=== PATIENT | female | born 1960 | race Caucasian/White ===

== ENCOUNTER 2017-04-11 19:16 | Inpatient (IN) ==
[2017-04-11] MEDS ORDERED: tiZANidine 4 MG TABLET PO PRN (20:05)
[2017-04-11] MEDS ORDERED: Ondansetron ODT 4 MG TAB.RAPDIS PO PRN (20:05)
[2017-04-11] MEDS ORDERED: Nitroglycerin 0.4 MG TAB.SUBL SL PRN (20:05)
[2017-04-11] MEDS ORDERED: BYDUREON SQ SCH (20:15)
[2017-04-11] MEDS: Famotidine 20 MG TABLET PO SCH (21:46)
[2017-04-11] MEDS: Gabapentin 300 MG CAPSULE PO SCH (21:47)
[2017-04-11] MEDS: *HR* OxyCODONE/APAP 10/325 TABLET PO PRN (21:47)
[2017-04-12 05:21] LABS: Basophils % 0.2 %; Eosinophils % 3.3 %; Hematocrit 27.1 % (35.3-44.9); Hemoglobin 8.8 g/dL (11.5-15.4); Immature Granulocytes % 0.2 % (0-4); Lymphocytes % 12.4 %; Mean Corpuscular HGB Conc 32.5 g/dL (31.6-35.5); Mean Corpuscular Hemoglobin 28.7 pg (28.0-33.3); Mean Corpuscular Volume 88.3 fL (83.0-100.0); Mean Platelet Volume 9.1 fL (9.4-12.4); Monocytes % 7.4 %; Platelet Count 250 K/mcL (140-400); Red Blood Count 3.07 M/mcL (3.82-4.97); Red Cell Distribution Width 15.4 % (11.5-14.5); Segmented Neutrophils % 76.5 %
[2017-04-12 05:22] LABS: Eosinophils # 0.1 K/mcL (0.0-0.6); Lymphocytes # 0.5 K/mcL (0.6-4.6); Monocytes # 0.3 K/mcL (0.0-1.3); Neutrophils # 3.2 K/mcL (1.6-8.9)
[2017-04-12 05:30] LABS: Activated Partial Thrombo Time 28.7 Seconds (26.0-36.0)
[2017-04-12] MEDS: *HR* OxyCODONE/APAP 10/325 TABLET PO PRN ×3 (05:32→20:27)
[2017-04-12] MEDS: Ipratropium/Albuterol Neb 3 ML IH PRN (05:32)
[2017-04-12 05:36] LABS: BUN/Creatinine Ratio 16 (6-26); Blood Urea Nitrogen 11 mg/dL (7-20); Calcium 8.2 mg/dL (8.6-10.8); Carbon Dioxide 26 mEq/L (19-29); Chloride 102 mEq/L (98-109); Glucose 185 mg/dL (70-99); Osmolality,Calculated 290 (280-300); Sodium 138 mEq/L (136-145); eGFR For African Americans > 60 (> 60); eGFR For Non-African Americans > 60 (> 60)
[2017-04-12] MEDS: *HR* Enoxaparin 40 MG/0.4 ML SYRINGE SQ SCH (08:25)
[2017-04-12] MEDS: Aspirin Enteric Coated 81 MG Tablet PO SCH (08:26)
[2017-04-12] MEDS: Gabapentin 300 MG CAPSULE PO SCH ×3 (08:26→20:28)
[2017-04-12] MEDS: *HR* Metformin 500 MG TABLET PO SCH ×2 (08:26→17:17)
--- NOTE | 2017-04-12 11:16 | Internal Med History&Physical ---
Date of Encounter: 04/12/17 Time of Encounter: 10:45 Assessment and Plan (1) Status post open reduction with internal fixation of fracture Current visit: Yes Status: Acute - PT/OT. - DVT prophylaxis. - Ortho f/u on 04/16. (2) Normocytic anemia Current visit: Yes Status: Acute Stable, continue to monitor clinically. No indication for transfusion as of now. (3) CAD (coronary artery disease) Current visit: No Status: Chronic Continue home meds (aspirin, Plavix, metoprolol, and simvastatin). Qualifiers: Coronary Disease-Associated Artery/Lesion type: [place] artery [place] vs. transplanted heart: [place] heart Associated angina: angina presence unspecified Qualified Code(s): I25.10 - Atherosclerotic heart disease of [place] coronary artery without angina pectoris (4) Hypertension Current visit: No Status: Chronic Continue home meds (metoprolol). Qualifiers: Hypertension type: essential hypertension Qualified Code(s): I10 - Essential (primary) hypertension (5) Diabetes Current visit: No Status: Chronic - HbA1c = 7.2 on 11/13/2016, will repeat. - Continue home metformin. - SSI + hypoglycemia protocol. Qualifiers: Diabetes mellitus type: type 2 Diabetes mellitus complication status: with neurologic complications Diabetes mellitus complication detail: with polyneuropathy Diabetes mellitus exterminator termite insulin use: without exterminator termite use Qualified Code(s): E11.42 - Type 2 diabetes mellitus with diabetic polyneuropathy (6) DVT prophylaxis Current visit: Yes Status: Acute Continue subQ Lovenox. (7) Anxiety Current visit: No Status: Acute Continue home zolpidem. (8) Depression Current visit: No Status: Acute Continue home citalopram. (9) Cough Current visit: Yes Status: Acute - CXR on 04/09 revealed mild bilateral interstitial opacities; will repeat a CXR. - Incentive spirometry. - Supportive care for now. Internal Medicine - H&P: HPI Chief complaint: Left femur fracture s/p ORIF Admitted From: Hospital to Hospital Transfer Plans for Post Hospital Care: Transfer Inp Rehab Fac History of present illness: Ms. Mcgregor is a 56 year old female w/a PMH significant HTN, DM2, CAD s/p stents , anxiety, and depression who was recently admitted to [facility] for a left femur fracture s/p ORIF now transferred to our facility for rehabilitation. Briefly, per the patient's discharge summary, other than the surgery itself, 2 units of pRBC, and self-limited postoperative encephalopathy, the patient's hospital course was overall uncomplicated. At the time of this encounter, the patient is resting comfortably in bed. Other than a nagging cough that started while the patient was hospitalized, the patient reports no fever, chills, CP, SOB, n/v, changes in BM pattern, dysuria, seizure, skin rash , bruising, or bleeding symptoms. Past Med Surg Social Fam HX - Past Medical History Medical history: arthritis, diabetes, GERD, myocardial infarction Psychiatric history: anxiety, depression - Past Surgical History Surgical History: cholecystectomy, knee replacement, angioplasty/stent, other - Social History Smoking Status: Never smoker Smokeless Tobacco Status: No Alcohol use: none Drug use: none - Family History Mother Living Status: Hx Family Cardiac Disorders: Yes Hx Family Respiratory Disorders: Yes Hx Family Cancer: Yes Father Living Status: Hx Family Cardiac Disorders: Yes Hx Family Respiratory Disorders: Yes Internal Medicine - H&P: Meds Citalopram [CeleXA] 20 mg PO QPM 01/10/15 [History] Ondansetron HCl [Zofran] 4 mg PO Q4-6H PRN 01/10/15 [History] Clopidogrel [Plavix] 75 mg PO QAM 02/24/15 [History] Tizanidine [Zanaflex] 4 mg PO Q8H PRN 02/24/15 [History] metFORMIN [Glucophage] 1,000 mg PO BIDWM 04/05/17 [History] Albuterol Sulfate [Proair Hfa] 2 puff IH Q4H PRN 04/06/17 [History] Aspirin Enteric Coated [Aspirin EC] 81 mg PO DAILY 04/06/17 [History] Exenatide Microspheres [Bydureon Pen] 2 mg SQ QWEEK 04/06/17 [History] Nitroglycerin [Nitrostat] 0.4 mg SL Q5M PRN 04/06/17 [History] Ranitidine HCl [Zantac] 150 mg PO HS 04/06/17 [History] Simvastatin [Zocor] 40 mg PO HS 04/06/17 [History] Docusate [Colace] 100 mg PO BID PRN #14 capsule 04/11/17 [Rx] Enoxaparin [Lovenox] 40 mg SQ DAILY 10 Days #10 syr 04/11/17 [Rx] Gabapentin [Neurontin] 600 mg PO TID #14 tablet 04/11/17 [Rx] Ipratropium/Albuterol Neb [Duoneb] 3 ml IH [id number] PRN #30 inhsol 04/11/17 [Rx] Metoprolol [Lopressor] 25 mg PO BID #60 tablet 04/11/17 [Rx] OxyCODONE/APAP 10/325 [Percocet 10/325 MG] 1 each PO Q6HR PRN #10 tablet [Rx] Zolpidem [Ambien] 10 mg PO HS #7 tablet 04/11/17 [Rx] 3 Allergy/AdvReac Type Severity Reaction Status Date / Time No Known Allergies Allergy Verified 04/06/17 01:33 EDT All Systems PM: A 10-system review of systems was performed and is negative for pertinent findings except as documented above in the HPI. Review of systems: 10 systems reviewed and (-) other than mentioned per HPI. - Constitutional Vitals: Temp Pulse Resp BP Pulse Ox 98.3 F 82 18 133/85 90 04/12/17 07:29 04/12/17 09:16 04/12/17 09:16 04/12/17 09:16 04/12/17 09:16 Exam: Gen: A&Ox3, NAD. HEENT: NCAT. Neck: No palpable lymphadenopathy or thyromegaly. CV: RRR, S1S2. No murmur. Pulm: Somewhat limited due to positional difficulty, but overall CTAB. Abd: (+)BS. NDNT. Neuro: Weakness, otherwise non-focal. Skin: No rash. Ext: LLE in hinged immobilizer. No pitting edema. Internal Med - H&P Results - Labs CBC & Chem 7: 04/12/17 05:20 04/12/17 05:20 Labs: Short CBC 04/12/17 Range/Units 05:20 WBC 4.2 L (4.3-11.1) K/mcL Hgb 8.8 L (11.5-15.4) g/dL Hct 27.1 L (35.3-44.9) % Plt Count 250 (140-400) K/mcL Neutrophils # 3.2 (1.6-8.9) K/mcL [facility] 04/12/17 05:20 Sodium 138 Potassium 4.0 Chloride 102 Carbon Dioxide 26 BUN 11 Creatinine 0.69 Glucose 185 H Calcium 8.2 L
[2017-04-12] MEDS ORDERED: D5% in Water 1,000 ML IVC PRN (12:02)
[2017-04-12] MEDS ORDERED: Dextrose Gel 15 GM PO PRN ×2 (12:02)
[2017-04-12] MEDS ORDERED: *HR* Dextrose 50 % in Water (Syg) 50 ML SYRINGE IVP PRN (12:02)
[2017-04-12] MEDS: Insulin LISPRO 300 UNITS/3 ML VIAL SQ SCH ×3 (13:28→20:28)
[2017-04-12] MEDS: Famotidine 20 MG TABLET PO SCH (20:28)
[2017-04-12] MEDS: Benzonatate 100 MG CAPSULE PO PRN (20:28)
[2017-04-13] MEDS: Benzonatate 100 MG CAPSULE PO PRN ×3 (05:55→23:28)
[2017-04-13] MEDS: Ipratropium/Albuterol Neb 3 ML IH PRN (06:02)
[2017-04-13] MEDS: Insulin LISPRO 300 UNITS/3 ML VIAL SQ SCH ×4 (08:32→20:41)
[2017-04-13] MEDS: *HR* Enoxaparin 40 MG/0.4 ML SYRINGE SQ SCH (08:33)
[2017-04-13] MEDS: *HR* Metformin 500 MG TABLET PO SCH ×2 (08:33→17:18)
[2017-04-13] MEDS: Aspirin Enteric Coated 81 MG Tablet PO SCH (08:33)
[2017-04-13] MEDS: Gabapentin 300 MG CAPSULE PO SCH ×3 (08:33→20:40)
[2017-04-13] MEDS: *HR* OxyCODONE/APAP 10/325 TABLET PO PRN ×3 (08:47→20:09)
--- NOTE | 2017-04-13 12:08 | Internal Med Progress Note ---
Date of Encounter: 04/13/17 Time of Encounter: 11:20 - Assessment and plan (1) Status post open reduction with internal fixation of fracture Current Visit: Yes Status: Acute Assessment and plan: - PT/OT. - DVT prophylaxis. - Ortho f/u on 04/16. (2) Normocytic anemia Current Visit: Yes Status: Acute Assessment and plan: Stable, continue to monitor clinically. No indication for transfusion as of now. CBC tomorrow morning. (3) CAD (coronary artery disease) Current Visit: No Status: Chronic Assessment and plan: Continue home meds (aspirin, Plavix, metoprolol, and simvastatin). Qualifiers: Coronary Disease-Associated Artery/Lesion type: [place] artery [place] vs. transplanted heart: [place] heart Associated angina: angina presence unspecified Qualified Code(s): I25.10 - Atherosclerotic heart disease of [place] coronary artery without angina pectoris (4) Hypertension Current Visit: No Status: Chronic Assessment and plan: Continue home meds (metoprolol). Qualifiers: Hypertension type: essential hypertension Qualified Code(s): I10 - Essential (primary) hypertension (5) Diabetes Current Visit: No Status: Chronic Assessment and plan: - HbA1c = 7.2 on 11/13/2016, will repeat. - Continue home metformin. - SSI + hypoglycemia protocol. Qualifiers: Diabetes mellitus type: type 2 Diabetes mellitus complication status: with neurologic complications Diabetes mellitus complication detail: with polyneuropathy Diabetes mellitus monument carver insulin use: without snf use Qualified Code(s): E11.42 - Type 2 diabetes mellitus with diabetic polyneuropathy (6) DVT prophylaxis Current Visit: Yes Status: Acute Assessment and plan: Continue subQ Lovenox. (7) Anxiety Current Visit: No Status: Chronic Assessment and plan: Continue home zolpidem. (8) Depression Current Visit: No Status: Chronic Assessment and plan: Continue home citalopram. Qualifiers: Qualified Code(s): F32.89 - Other specified depressive episodes (9) Cough Current Visit: Yes Status: Acute Assessment and plan: - CXR from yesterday stable compared to 04/09. - Continue incentive spirometry. - Z-JOS (will monitor electrolytes closely). - Supportive care. - Time Spent With Patient less than 15 minutes - Subjective Interval history: - Feeling "okay." - Still having a cough; glad to know CXR from yesterday was stable from before. - Constitutional Vitals: Temp Pulse Resp BP Pulse Ox 97.2 F L 73 16 163/86 90 04/13/17 08:00 04/13/17 08:00 04/13/17 08:00 04/13/17 08:00 04/13/17 08:00 Exam: Gen: A&Ox3, NAD. HEENT: NCAT. Neck: No palpable lymphadenopathy or thyromegaly. CV: RRR, S1S2. No murmur. Pulm: Air exchange somewhat tight, but overall CTAB. Abd: (+)BS. NDNT. Neuro: LLE weakness noted. Skin: No rash. Ext: LLE in hinged immobilizer. No pitting edema. Internal Medicine: Result - Labs CBC & Chem 7: 04/12/17 05:20 04/12/17 05:20 - ABG Interpretation ABG results: PT/INR, D-dimer PT 11.0 Seconds (9.4-12.1) 04/12/17 05:20 - Impressions Impressions Chest X-Ray 04/12/17 11:59 IMPRESSION: No significant interval change of perihilar interstitial opacities, right greater than left, since 04/09/2017. No new focal consolidation. D/ / Mamie Trinidad MD / Mamie Trinidad MD Interpreting Provider: Mamie Trinidad MD - Diagnostic Studies Chest x-ray Additional comments: "No significant interval change of perihilar interstitial opacities, right greater than left, since 04/09/2017. No new focal consolidation." Consult Discharge Plan - Plan Referrals: Sergio Barrientos DO [Primary Care Provider] - (Follow up Sunday, April 16, 2017 at 8:00 Niurka Quinones [facility] [address] [facility] [address] [phone] Follow up Sunday, April 23, 2017 at 8:30 Niurka Quinones [facility] [address] [phone] Follow up May at 8:00 Kaylee Joiner [facility] [address] [place], [place] [phone] Follow up Saturday May 20, 2017 at 8:30 [facility] [place], [place] [phone] Follow up June 12, 2017 at 11:15 Sergio Barrientos [facility] [address] [place], [place] [phone] )
[2017-04-13] MEDS ORDERED: Azithromycin 250 MG TABLET PO ONE (12:09)
[2017-04-13] MEDS: Famotidine 20 MG TABLET PO SCH (20:40)
[2017-04-14] MEDS: Ipratropium/Albuterol Neb 3 ML IH PRN ×2 (05:19→13:50)
[2017-04-14] MEDS: *HR* OxyCODONE/APAP 10/325 TABLET PO PRN ×3 (05:19→20:28)
[2017-04-14 05:43] LABS: Basophils % 0.1 %; Eosinophils # 0.2 K/mcL (0.0-0.6); Hematocrit 27.9 % (35.3-44.9); Immature Granulocytes % 1.5 % (0-4); Lymphocytes # 1.1 K/mcL (0.6-4.6); Lymphocytes % 14.6 %; Mean Corpuscular HGB Conc 32.3 g/dL (31.6-35.5); Mean Corpuscular Hemoglobin 28.6 pg (28.0-33.3); Mean Corpuscular Volume 88.6 fL (83.0-100.0); Mean Platelet Volume 9.4 fL (9.4-12.4); Monocytes # 0.5 K/mcL (0.0-1.3); Monocytes % 6.6 %; Neutrophils # 5.6 K/mcL (1.6-8.9); Platelet Count 333 K/mcL (140-400); Red Blood Count 3.15 M/mcL (3.82-4.97); Red Cell Distribution Width 15.5 % (11.5-14.5); Segmented Neutrophils % 74.2 %
[2017-04-14 06:02] LABS: BUN/Creatinine Ratio 12 (6-26); Blood Urea Nitrogen 8 mg/dL (7-20); Calcium 8.5 mg/dL (8.6-10.8); Carbon Dioxide 26 mEq/L (19-29); Chloride 101 mEq/L (98-109); Glucose 165 mg/dL (70-99); Osmolality,Calculated 288 (280-300); Potassium 4.1 mEq/L (3.5-4.5); Sodium 138 mEq/L (136-145); eGFR For African Americans > 60 (> 60); eGFR For Non-African Americans > 60 (> 60)
[2017-04-14] MEDS: Insulin LISPRO 300 UNITS/3 ML VIAL SQ SCH ×4 (07:58→20:31)
[2017-04-14] MEDS: Gabapentin 300 MG CAPSULE PO SCH ×3 (08:43→20:27)
[2017-04-14] MEDS: Azithromycin 250 MG TABLET PO SCH (08:44)
[2017-04-14] MEDS: Aspirin Enteric Coated 81 MG Tablet PO SCH (08:44)
[2017-04-14] MEDS: *HR* Enoxaparin 40 MG/0.4 ML SYRINGE SQ SCH (08:45)
[2017-04-14] MEDS: *HR* Metformin 500 MG TABLET PO SCH ×2 (09:37→17:16)
[2017-04-14 14:16] LABS: Hemoglobin A1C 6.9 %
--- NOTE | 2017-04-14 14:39 | Internal Med Progress Note ---
Date of Encounter: 04/17/17 Time of Encounter: 14:37 - Assessment and plan (1) Accelerated hypertension Current Visit: No Status: Resolved Assessment and plan: Lab pressures well-controlled (2) Chronic pain Current Visit: No Status: Chronic Assessment and plan: I guess she has lot of chronic pain complaint Qualifiers: Chronic pain type: other chronic postprocedural pain Qualified Code(s): G89.28 - Other chronic postprocedural pain (3) NSTEMI (non-ST elevated myocardial infarction) Current Visit: No Status: Ruled-out Assessment and plan: Patient has a history of myocardial disease. And she had a stone stemming (4) Troponin level elevated Current Visit: No Status: Acute Assessment and plan: Vertebral levels were somewhat elevated (5) CAD (coronary artery disease) Current Visit: No Status: Chronic Assessment and plan: By history she has had coronary artery disease. Qualifiers: Coronary Disease-Associated Artery/Lesion type: [place] artery [place] vs. transplanted heart: [place] heart Associated angina: angina presence unspecified Qualified Code(s): I25.10 - Atherosclerotic heart disease of [place] coronary artery without angina pectoris (6) Femur fracture Current Visit: No Status: Acute Qualifiers: Encounter type: initial encounter Femur location: distal Fracture type: closed Fracture morphology: unspecified fracture morphology Laterality: left Qualified Code(s): S72.402A - Unspecified fracture of lower end of left femur, initial encounter for closed fracture - Time Spent With Patient less than 15 minutes - Subjective Interval history: Patient is timid complains a lot of pain. He is contact guard for transfer to bedside commode. She therapy tech be discharged early next week on Friday. She is doing tolerably well just a slow start - Constitutional Vitals: Temp Pulse Resp BP Pulse Ox 97.8 F 74 18 145/84 90 04/14/17 07:16 04/14/17 07:16 04/14/17 07:16 04/14/17 07:16 04/14/17 07:16 - Head Head exam: Present: atraumatic, normal inspection, normocephalic - Neck Neck exam general surgery: Present: supple, trachea midline. Absent: lymphadenopathy - Respiratory Respiratory exam: Present: CTAB. Absent: accessory muscle use, rales, rhonchi, wheezes - Cardiovascular Cardiovascular exam: Present: RRR, +S1, +S2. Absent: diastolic murmur, gallop, rubs, systolic murmur - GI/Abdominal GI/Abdominal exam: Present: normal bowel sounds, soft, no peritoneal signs. Absent: distended, tenderness Internal Medicine: Result - Labs CBC & Chem 7: 04/14/17 05:10 04/14/17 05:10 Labs: Short CBC 04/14/17 Range/Units 05:10 WBC 7.6 D (4.3-11.1) K/mcL Hgb 9.0 L (11.5-15.4) g/dL Hct 27.9 L (35.3-44.9) % Plt Count 333 (140-400) K/mcL Neutrophils # 5.6 (1.6-8.9) K/mcL [facility] 04/14/17 05:10 Sodium 138 Potassium 4.1 Chloride 101 Carbon Dioxide 26 BUN 8 Creatinine 0.67 Glucose 165 H Calcium 8.5 L Lab is stable - ABG Interpretation ABG results: PT/INR, D-dimer PT 11.0 Seconds (9.4-12.1) 04/12/17 05:20 Consult Discharge Plan - Plan Referrals: Sergio Barrientos DO [Primary Care Provider] - (Follow up Sunday, April 16, 2017 at 8:00 Niurka [facility] [place] [address] [place], [place] [phone] Follow up Sunday, April 23, 2017 at 8:30 Niurka Quinones [facility] [place] [address] [place], [place] [phone] Follow up May at 8:00 Kaylee Joiner [facility] [place] [address] [place], [place] [phone] Follow up Saturday May 20, 2017 at 8:30 Freeman [facility] [place], [place] [phone] Follow up June 12, 2017 at 11:15 Sergio Barrientos [address] [phone] )
[2017-04-14] MEDS: predniSONE 20 MG TABLET PO SCH (17:16)
[2017-04-14] MEDS: Famotidine 20 MG TABLET PO SCH (20:27)
[2017-04-14] MEDS: Benzonatate 100 MG CAPSULE PO PRN (20:28)
[2017-04-15] MEDS: *HR* OxyCODONE/APAP 10/325 TABLET PO PRN ×5 (00:35→21:32)
[2017-04-15] MEDS: Insulin LISPRO 300 UNITS/3 ML VIAL SQ SCH ×4 (07:51→21:35)
[2017-04-15] MEDS: *HR* Enoxaparin 40 MG/0.4 ML SYRINGE SQ SCH (07:55)
[2017-04-15] MEDS: Gabapentin 300 MG CAPSULE PO SCH ×3 (08:32→21:32)
[2017-04-15] MEDS: predniSONE 20 MG TABLET PO SCH ×2 (08:32→17:20)
[2017-04-15] MEDS: *HR* Metformin 500 MG TABLET PO SCH ×2 (08:32→17:20)
[2017-04-15] MEDS: Aspirin Enteric Coated 81 MG Tablet PO SCH (08:33)
[2017-04-15] MEDS: Azithromycin 250 MG TABLET PO SCH (08:35)
--- NOTE | 2017-04-15 15:30 | Internal Med Progress Note ---
Date of Encounter: 04/17/17 Time of Encounter: 15:28 - Assessment and plan (1) Accelerated hypertension Current Visit: No Status: Resolved Assessment and plan: Blood pressure stable (2) Chronic pain Current Visit: No Status: Chronic Assessment and plan: This is long-term and is being addressed Qualifiers: Chronic pain type: other chronic postprocedural pain Qualified Code(s): G89.28 - Other chronic postprocedural pain (3) NSTEMI (non-ST elevated myocardial infarction) Current Visit: No Status: Ruled-out Assessment and plan: Seems to be stable now complaints of chest pain or other difficulties no arrhythmias or dysrhythmias report (4) Troponin level elevated Current Visit: No Status: Acute Assessment and plan: Troponin level I will check it but it is relatively normal male (5) CAD (coronary artery disease) Current Visit: No Status: Chronic Qualifiers: Coronary Disease-Associated Artery/Lesion type: [place] artery [place] vs. transplanted heart: [place] heart Associated angina: angina presence unspecified Qualified Code(s): I25.10 - Atherosclerotic heart disease of [place] coronary artery without angina pectoris (6) Femur fracture Current Visit: No Status: Acute Qualifiers: Encounter type: initial encounter Femur location: distal Fracture type: closed Fracture morphology: unspecified fracture morphology Laterality: left Qualified Code(s): S72.402A - Unspecified fracture of lower end of left femur, initial encounter for closed fracture - Subjective Interval history: Patient is timid complains a lot of pain. He is contact guard for transfer to bedside commode. She scheduled .look to D incision today disturbing clean and dry. 90 minute drop of blood on the dressing be discharged early next week on Friday. She is doing tolerably well just a slow start - Constitutional Vitals: Temp Pulse Resp BP Pulse Ox 97.5 F L 69 16 137/80 92 04/15/17 08:29 04/15/17 08:29 04/14/17 19:00 04/15/17 08:29 04/15/17 08:29 - Head Head exam: Present: atraumatic, normal inspection, normocephalic - Neck Neck exam general surgery: Present: supple, trachea midline. Absent: lymphadenopathy - Respiratory Respiratory exam: Present: CTAB. Absent: accessory muscle use, rales, rhonchi, wheezes - Cardiovascular Cardiovascular exam: Present: RRR, +S1, +S2. Absent: diastolic murmur, gallop, rubs, systolic murmur - GI/Abdominal GI/Abdominal exam: Present: normal bowel sounds, soft, no peritoneal signs. Absent: distended, tenderness Internal Medicine: Result - Labs CBC & Chem 7: 04/14/17 05:10 04/14/17 05:10 Labs: Lab is stable - ABG Interpretation ABG results: PT/INR, D-dimer PT 11.0 Seconds (9.4-12.1) 04/12/17 05:20 Consult Discharge Plan - Plan Referrals: Sergio Barrientos DO [Primary Care Provider] - (Follow up Sunday, April 16, 2017 at 8:00 Niurka [facility]ones[facility] [address] [place], [place] [phone] Follow up Sunday, April 23, 2017 at 8:30 Niurka Quinones [facility] [place] [address] [place], [place] [phone] Follow up May at 8:00 Kaylee Joiner [facility] [place] [address] [place], [place] [phone] Follow up Saturday May 20, 2017 at 8:30 Freeman [facility] [place], [place] [phone] Follow up June 12, 2017 at 11:15 Sergio Barrientos [address] [phone] )
[2017-04-15] MEDS: Benzonatate 100 MG CAPSULE PO PRN (21:32)
[2017-04-15] MEDS: Famotidine 20 MG TABLET PO SCH (21:32)
[2017-04-16] MEDS: *HR* OxyCODONE/APAP 10/325 TABLET PO PRN ×3 (07:05→20:20)
[2017-04-16] MEDS: Gabapentin 300 MG CAPSULE PO SCH ×3 (10:47→20:20)
[2017-04-16] MEDS: *HR* Enoxaparin 40 MG/0.4 ML SYRINGE SQ SCH (10:47)
[2017-04-16] MEDS: *HR* Metformin 500 MG TABLET PO SCH ×2 (10:47→17:55)
[2017-04-16] MEDS: predniSONE 20 MG TABLET PO SCH ×2 (10:48→17:54)
[2017-04-16] MEDS: Aspirin Enteric Coated 81 MG Tablet PO SCH (10:48)
[2017-04-16] MEDS: Azithromycin 250 MG TABLET PO SCH (10:48)
[2017-04-16] MEDS: Ipratropium/Albuterol Neb 3 ML IH PRN (12:36)
[2017-04-16] MEDS: Insulin LISPRO 300 UNITS/3 ML VIAL SQ SCH ×3 (12:58→23:28)
--- NOTE | 2017-04-16 13:59 | Physical Med Progress Note ---
Date of Encounter: 04/16/17 Time of Encounter: 13:56 Physical Medicine-PN: Subj Interval history: PMR PCC Note Patient requires cues to use a walker. Patient complains of fatigue with walker and has refused to walk. Patient is SBA for transfers. Requires cues for weight bearing restrictions. Patient would like to go home. Patient will go home at a wheelchair level. Plan for discharge to home on 04/18/17. - Constitutional Vitals: Vital Signs Temp Pulse Resp BP Pulse Ox 04/16/17 09:00 98.6 F 75 14 171/85 92 04/15/17 19:11 98.4 F 78 17 159/73 92 Intake and Output 04/15/17 04/16/17 04/16/17 23:59 07:59 15:59 Intake Total 240 / 240 240 / 240 Balance 240 / 240 240 / 240 Intake: Oral 240 / 240 240 / 240 Other: Meal Dinner Breakfast Percent of Meal Consumed 100% 100% # Voids 1 1 1 # Urine Diapers 1 Blood Glucose* 235 139 Physical Medicine-PN: Obj Data - Labs CBC & Chem 7: 04/14/17 05:10 04/14/17 05:10 Labs: Laboratory Results - last 24 hr 04/15/17 04/15/17 04/16/17 15:55 19:59 07:20 POC Glucose 237 H 235 H 180 H - ABG Interpretation ABG results: PT/INR, D-dimer PT 11.0 Seconds (9.4-12.1) 04/12/17 05:20 Consult Discharge Plan - Plan Referrals: Sergio Barrientos DO [Primary Care Provider] - (Follow up Sunday, April 16, 2017 at 8:00 Niurka Quinones [facility] [address] [place] [phone] Follow up Sunday, April 23, 2017 at 8:30 Niurka Quinones [facility] [place] [address] [facility] [place], [place] [phone] Follow up May at 8:00 Kaylee Joiner [facility] [address] [facility] [place], [place] [phone] Follow up Saturday May 20, 2017 at 8:30 Freeman [facility] [place] [phone] Follow up June 12, 2017 at 11:15 Sergio Barrientos [facility] [address] [place], [place] [phone] )
[2017-04-16] MEDS: Famotidine 20 MG TABLET PO SCH (20:20)
[2017-04-17] MEDS: *HR* OxyCODONE/APAP 10/325 TABLET PO PRN ×3 (04:06→22:15)
[2017-04-17] MEDS: Benzonatate 100 MG CAPSULE PO PRN ×3 (05:15→14:48)
[2017-04-17] MEDS: *HR* Enoxaparin 40 MG/0.4 ML SYRINGE SQ SCH (07:51)
[2017-04-17] MEDS: Azithromycin 250 MG TABLET PO SCH (07:52)
[2017-04-17] MEDS: Aspirin Enteric Coated 81 MG Tablet PO SCH (07:52)
[2017-04-17] MEDS: Gabapentin 300 MG CAPSULE PO SCH ×3 (07:52→22:15)
[2017-04-17] MEDS: *HR* Metformin 500 MG TABLET PO SCH ×2 (07:58→16:38)
[2017-04-17] MEDS: predniSONE 20 MG TABLET PO SCH ×2 (07:59→16:38)
[2017-04-17] MEDS: Insulin LISPRO 300 UNITS/3 ML VIAL SQ SCH ×4 (08:02→22:19)
--- NOTE | 2017-04-17 11:19 | Internal Med Progress Note ---
Date of Encounter: 04/17/17 Time of Encounter: 11:17 - Assessment and plan (1) Accelerated hypertension Current Visit: No Status: Resolved Assessment and plan: Blood pressure is controlled (2) Chronic pain Current Visit: No Status: Chronic Assessment and plan: Patient has lots of complaints. She has a lot of medical problems. Qualifiers: Chronic pain type: other chronic postprocedural pain Qualified Code(s): G89.28 - Other chronic postprocedural pain (3) NSTEMI (non-ST elevated myocardial infarction) Current Visit: No Status: Ruled-out Assessment and plan: This by history. Currently no chest pain or problem (4) Troponin level elevated Current Visit: No Status: Acute (5) CAD (coronary artery disease) Current Visit: No Status: Chronic Assessment and plan: Known history of CAD Qualifiers: Coronary Disease-Associated Artery/Lesion type: [place] artery [place] vs. transplanted heart: [place] heart Associated angina: angina presence unspecified Qualified Code(s): I25.10 - Atherosclerotic heart disease of [place] coronary artery without angina pectoris (6) Femur fracture Current Visit: No Status: Acute Assessment and plan: Patient have [place] for fracture and underwent ORIF. She is here for rehabilitation and doing well she does get very fatigued Qualifiers: Encounter type: initial encounter Femur location: distal Fracture type: closed Fracture morphology: unspecified fracture morphology Laterality: left Qualified Code(s): S72.402A - Unspecified fracture of lower end of left femur, initial encounter for closed fracture - Time Spent With Patient less than 15 minutes - Subjective Interval history: Patient felt poorly yesterday afternoon I think she just gets tired and fatigued very quickly. She is doing better today. I am going to side prescription for a wheelchair with elevating leg rest. Her diagnosis is fractured femur and she needs it for ADLs. She is unsafe because she is nonweight bearing with a walker. Patient is alert and oriented and is capable of using a wheelchair safely. - Constitutional Vitals: Temp Pulse Resp BP Pulse Ox 98.6 F 56 18 186/71 95 04/17/17 07:00 04/17/17 07:00 04/17/17 07:00 04/17/17 07:00 04/17/17 07:00 - Head Head exam: Present: atraumatic, normal inspection, normocephalic - Neck Neck exam general surgery: Present: supple, trachea midline. Absent: lymphadenopathy - Respiratory Respiratory exam: Present: CTAB. Absent: accessory muscle use, rales, rhonchi, wheezes - Cardiovascular Cardiovascular exam: Present: RRR, +S1, +S2. Absent: diastolic murmur, gallop, rubs, systolic murmur - GI/Abdominal GI/Abdominal exam: Present: normal bowel sounds, soft, no peritoneal signs. Absent: distended, tenderness Internal Medicine: Result - Labs CBC & Chem 7: 04/14/17 05:10 04/14/17 05:10 Labs: Lab is stable - ABG Interpretation ABG results: PT/INR, D-dimer PT 11.0 Seconds (9.4-12.1) 04/12/17 05:20 Consult Discharge Plan - Plan Referrals: Sergio Barrientos DO [Primary Care Provider] - (Follow up Sunday, April 16, 2017 at 8:00 Niurka Quinones [facility] [place] [address] [place], [place] [phone] Follow up Sunday, April 23, 2017 at 8:30 Niurka Quinones [facility] [place] [address] [place], [place] [phone] Follow up May at 8:00 Kaylee Joiner [facility] [place] [address] [place], [place] [phone] Follow up Saturday May 20, 2017 at 8:30 Freeman Dobbins [facility] [place] [phone] Follow up June 12, 2017 at 11:15 Sergio Barrientos [address] [phone] )
[2017-04-17] MEDS: Famotidine 20 MG TABLET PO SCH (22:15)
[2017-04-18] MEDS: Benzonatate 100 MG CAPSULE PO PRN (05:24)
[2017-04-18] MEDS: Insulin LISPRO 300 UNITS/3 ML VIAL SQ SCH (08:45)
[2017-04-18] MEDS: *HR* Enoxaparin 40 MG/0.4 ML SYRINGE SQ SCH (08:53)
[2017-04-18] MEDS: Gabapentin 300 MG CAPSULE PO SCH (08:54)
[2017-04-18] MEDS: *HR* Metformin 500 MG TABLET PO SCH (08:54)
[2017-04-18] MEDS: Aspirin Enteric Coated 81 MG Tablet PO SCH (08:54)
[2017-04-18] MEDS: *HR* OxyCODONE/APAP 10/325 TABLET PO PRN (08:54)
[2017-04-18] MEDS: predniSONE 20 MG TABLET PO SCH (08:54)
[2017-04-18 10:36] VITALS: BP 126/72
--- NOTE | 2017-04-18 11:09 | Discharge Summary ---
Date of Encounter: 04/18/17 Time of Encounter: 11:07 - Discharge Diagnosis (1) Accelerated hypertension Priority: Secondary Status: Resolved (2) Chronic pain Priority: Secondary Status: Chronic Qualifiers: Chronic pain type: other chronic postprocedural pain Qualified Code(s): G89.28 - Other chronic postprocedural pain (3) NSTEMI (non-ST elevated myocardial infarction) Priority: Secondary Status: Ruled-out (4) Troponin level elevated Priority: Secondary Status: Acute (5) CAD (coronary artery disease) Priority: Secondary Status: Chronic Qualifiers: Coronary Disease-Associated Artery/Lesion type: [place] artery [place] vs. transplanted heart: [place] heart Associated angina: angina presence unspecified Qualified Code(s): I25.10 - Atherosclerotic heart disease of [place] coronary artery without angina pectoris (6) Femur fracture Priority: Primary Status: Acute Qualifiers: Encounter type: subsequent encounter Femur location: distal Fracture type : closed Fracture morphology: unspecified fracture morphology Laterality: left - Discharge Medications Home Medications: Citalopram [CeleXA] 20 mg PO QPM 01/10/15 [History] Ondansetron HCl [Zofran] 4 mg PO Q4-6H PRN 01/10/15 [History] Clopidogrel [Plavix] 75 mg PO QAM 02/24/15 [History] Tizanidine [Zanaflex] 4 mg PO Q8H PRN 02/24/15 [History] metFORMIN [Glucophage] 1,000 mg PO BIDWM 04/05/17 [History] Albuterol Sulfate [Proair Hfa] 2 puff IH Q4H PRN 04/06/17 [History] Aspirin Enteric Coated [Aspirin EC] 81 mg PO DAILY 04/06/17 [History] Exenatide Microspheres [Bydureon Pen] 2 mg SQ QWEEK 04/06/17 [History] Nitroglycerin [Nitrostat] 0.4 mg SL Q5M PRN 04/06/17 [History] Ranitidine HCl [Zantac] 150 mg PO HS 04/06/17 [History] Simvastatin [Zocor] 40 mg PO HS 04/06/17 [History] Docusate [Colace] 100 mg PO BID PRN #14 capsule 04/11/17 [Rx] Enoxaparin [Lovenox] 40 mg SQ DAILY 10 Days #10 syr 04/11/17 [Rx] Gabapentin [Neurontin] 600 mg PO TID #14 tablet 04/11/17 [Rx] Ipratropium/Albuterol Neb [Duoneb] 3 ml IH [id number] PRN #30 inhsol 04/11/17 [Rx] Metoprolol [Lopressor] 25 mg PO BID #60 tablet 04/11/17 [Rx] OxyCODONE/APAP 10/325 [Percocet 10/325 MG] 1 each PO Q6HR PRN #10 tablet [Rx] Zolpidem [Ambien] 10 mg PO HS #7 tablet 04/11/17 [Rx] Allergies/Adverse Reactions: 3 Allergy/AdvReac Type Severity Reaction Status Date / Time No Known Allergies Allergy Verified 04/06/17 01:33 EDT Date of admission: 04/11/17 19:20 Primary care physician: Bernie Roman Consults: 04/11/17 20:09 Consult to Occupational Therapy [CONS] Routine Comment: Evaluate, develop and implement POC Reason for Consult: treat and eval Consult to Physical Therapy [CONS] Routine Comment: Evaluate, develop and implement POC Reason for Consult: treat and eval Consult to Recreational Therapy [CONS] Routine Comment: Evaluate, develop and implement POC Consult to Fleet Operations Manager [CONS] Routine Reason for SW Consult: treat and eval Discharging clinician: Barron Loyd Anticipated date of discharge: 04/18/17 - Patient Status Disposition: Home Health Service Condition: Good Functional capacity at discharge: wheelchair bound Overall status at discharge: patient is not back to baseline - Discharge Instructions Follow Up With: Sergio Barrientos DO [Primary Care Provider] - (Follow up Sunday, April 16, 2017 at 8:00 [facility] [place] [address] [facility] [place] [phone] Follow up Sunday, April 23, 2017 at 8:30 [facility] [place] [address] [facility] [place] [phone] Follow up May at 8:00 [facility] [place] [address] [place], [place] [phone] Follow up Saturday May 20, 2017 at 8:30 [facility] [place] [phone] Follow up June 12, 2017 at 11:15 Sergio Barrientos [facility] [address] [place], [place] [phone] ) - Diet and Activity Activity: as per physical therapy Diet: diabetic diet Interval History: Patient came to the hospital after femur fracture with an ORIF. She is nonweightbearing. She will will need a wheelchair. Hospital course: Ms. Mcgregor is a 56 year old female - Time Spent with Patient Total time spent providing and/or coordinating discharge services: Less than 30 minutes - Constitutional Vitals: Temp Pulse Resp BP Pulse Ox 97.9 F 69 16 126/72 95 04/18/17 07:00 04/18/17 07:00 04/18/17 07:00 04/18/17 10:35 04/18/17 07:00 - Head Head exam: Present: atraumatic, normal inspection, normocephalic - Neck Neck exam general surgery: Present: supple, trachea midline. Absent: lymphadenopathy - Respiratory Respiratory exam: Present: CTAB. Absent: accessory muscle use, rales, rhonchi, wheezes - Cardiovascular Cardiovascular exam: Present: RRR, +S1, +S2. Absent: diastolic murmur, gallop, rubs, systolic murmur - GI/Abdominal GI/Abdominal exam: Present: normal bowel sounds, soft, no peritoneal signs. Absent: distended, tenderness - Expanded Lower Extremities Exam Upper Leg exam: Present: tenderness
--- NOTE | 2017-04-18 11:14 | Physician Discharge Referral ---
Home Health/Hosp Referral Info Transfer to: Home Health Provider in Charge Post Discharge: PCP - Diagnosis (1) Chronic pain Priority: Secondary Status: Chronic (2) Troponin level elevated Priority: Secondary Status: Acute (3) CAD (coronary artery disease) Priority: Secondary Status: Chronic (4) Femur fracture Priority: Primary Status: Acute - Respiratory Orders Smoking Cessation: Smoking cessation has been advised. For more information, call the [place] Tobacco Quit Line at 3-398-XOTG-NOW. - Diet/Nutrition Diet/Nutrition Orders: No Concentrated Sweets - Activity Activity Orders: Chair - Services Needed Following services are medically necessary services: Nursing, Physical Therapy - Transfer Medications Home Medications: Citalopram [CeleXA] 20 mg PO QPM 01/10/15 [History] Ondansetron HCl [Zofran] 4 mg PO Q4-6H PRN 01/10/15 [History] Clopidogrel [Plavix] 75 mg PO QAM 02/24/15 [History] Tizanidine [Zanaflex] 4 mg PO Q8H PRN 02/24/15 [History] metFORMIN [Glucophage] 1,000 mg PO BIDWM 04/05/17 [History] Albuterol Sulfate [Proair Hfa] 2 puff IH Q4H PRN 04/06/17 [History] Aspirin Enteric Coated [Aspirin EC] 81 mg PO DAILY 04/06/17 [History] Exenatide Microspheres [Bydureon Pen] 2 mg SQ QWEEK 04/06/17 [History] Nitroglycerin [Nitrostat] 0.4 mg SL Q5M PRN 04/06/17 [History] Ranitidine HCl [Zantac] 150 mg PO HS 04/06/17 [History] Simvastatin [Zocor] 40 mg PO HS 04/06/17 [History] Docusate [Colace] 100 mg PO BID PRN #14 capsule 04/11/17 [Rx] Gabapentin [Neurontin] 600 mg PO TID #14 tablet 04/11/17 [Rx] Ipratropium/Albuterol Neb [Duoneb] 3 ml IH [id number] PRN #30 inhsol 04/11/17 [Rx] Metoprolol [Lopressor] 25 mg PO BID #60 tablet 04/11/17 [Rx] OxyCODONE/APAP 10/325 [Percocet 10/325 MG] 1 each PO Q6HR PRN #10 tablet [Rx] Zolpidem [Ambien] 10 mg PO HS #7 tablet 04/11/17 [Rx] Allergies/Adverse Reactions: 3 Allergy/AdvReac Type Severity Reaction Status Date / Time No Known Allergies Allergy Verified 04/06/17 01:33 EDT Certification: Further, I certify that my clinical findings support that this patient is homebound (i.e. absences from home require considerable and taxing effort and are for medical reasons or hindu services or infrequently or short duration when for other reasons) because: Homebound Reason: Patient requires assistance of a person or device to safely leave home, Post-surgery restriction and or conditions limit ability to leave home Attestation: My signature below is to certify that this patient is under my care and that I, or nurse practitioner, or a physician's cashier assistant working with me, has a face-to -face encounter with this patient.
== END 2017-04-18 12:15 | disposition home health service (06) | DRG 561 ==
LOC: INPGRE 19:20
PROVIDERS: ADMIT Internal Medicine; ATTEND Internal Medicine